=== PATIENT | female | born 1940 | race African-American/Black ===

== ENCOUNTER 2024-01-12 08:59 | Inpatient (IN) | payer BC ==
[~2024-01-12] VITALS: Ht 170.2 cm; Wt 78.6 kg
[2024-01-12] MEDS: ACETAMINOPHEN 500MG TABLET PO ONE (10:36)
[2024-01-12] MEDS ORDERED: ONDANSETRON HCL 4MG/2ML INJ IV PRN (12:45)
[2024-01-12 13:41] LABS: BG CARBOXYHEMOGLOBIN 0.3 % (0.5-1.5); BG DEOXYHEMOGLOBIN 2.3 % (0.0-5.0); BG FRACTION INSPIRED OXYGEN 21; BG HCO3 ACT 22.6 mmol/L (22.0-26.0); BG METHEMOGLOBIN 0.3 % (0.0-1.5); BG OXYGEN SATURATION 97.7 % (92.0-98.5); BG OXYHEMOGLOBIN 97.1 % (94.0-97.0); BG PCO2 34.2 mmHg (35.0-45.0); BG PH 7.437 (7.350-7.450); BG PO2 103.5 mmHg (75.0-100.0); BG SAMPLE SITE RIGHT BRACHIAL; BG TOTAL HEMOGLOBIN 13.5 g/dL (12.0-18.0); BG VENT MODE ROOM AIR
[2024-01-12 14:14] LABS: BASOPHILS % 0.8 % (0.0-2.0); EOSINOPHILS % 1.5 % (0.0-5.0); HEMOGLOBIN. 12.4 g/dL (12.0-16.0); LYMPHOCYTES % 29.1 % (20.0-50.0); MEAN CORPUSCULAR HEMOGLOBIN 27.2 pg (28.0-32.0); MEAN CORPUSCULAR HGB CONC 32.8 g/dL (31.0-37.0); MEAN PLATELET VOLUME 9.7 fl (7.4-10.4); NEUTROPHILS % 62.6 % (40.0-76.0); PLATELET 156 x1000/uL (130-400); RED BLOOD CELL COUNT 4.57 mill/uL (4.2-5.4); RED CELL DISTRIBUTION WIDTH 16.7 % (11.6-14.6)
[2024-01-12 14:28] LABS: CREATINE KINASE MB FRACTION 1.7 ng/mL (0.5-3.6)
[2024-01-12 14:29] LABS: TROPONIN I HIGH SENSITIVITY 27 ng/L (3.0-34)
[2024-01-12 14:30] LABS: CREATINE KINASE 198 IU/L (34-145)
[2024-01-12 16:00] VITALS: BP 135/56; PULSE 57; RESP 18; TEMP 96.9
[2024-01-12 18:12] LABS: CHLORIDE 112 mEq/L (98-107); POTASSIUM 3.9 mEq/L (3.5-5.1); SODIUM 142 mEq/L (136-145)
[2024-01-12 18:13] LABS: CARBON DIOXIDE 24 mEq/L (21-32)
[2024-01-12 18:14] LABS: CALCIUM 9.9 mg/dL (8.7-10.4)
[2024-01-12 18:19] LABS: CREATININE 0.9 mg/dL (0.6-1.0); GLUCOSE 75 mg/dL (70-105); UREA NITROGEN BLOOD 9 mg/dL (9-23)
[2024-01-12] MEDS ORDERED: ANAS1TAB49 PO ×2 (18:39→18:58)
[2024-01-12] MEDS ORDERED: HYDR12.54 PO (18:39)
[2024-01-12] MEDS ORDERED: AMLO5TAB4 PO (18:39)
[2024-01-12] MEDS ORDERED: METO-539 PO (18:58)
[2024-01-12] MEDS ORDERED: CRES10 PO (18:58)
[2024-01-12] MEDS ORDERED: HYDR25TA PO (18:58)
[2024-01-12] MEDS ORDERED: AMLO5TAB88 PO (18:58)
[2024-01-12 20:00] VITALS: BP 102/63; PULSE 56; RESP 18; TEMP 98.1
[2024-01-12] MEDS ORDERED: ENOXAPARIN 40MG/0.4ML SYR SUBCUT SCH (20:00)
[2024-01-12] MEDS: ENOXAPARIN 40MG/0.4ML SYR SUBCUT SCH (21:16)
[2024-01-12] MEDS: ACETAMINOPHEN 325MG TABLET PO PRN (21:27)
[2024-01-13] VITALS (7 sets, daily range): BP systolic 109–137; BP diastolic 45–87; PULSE 60–75; RESP 18–20; TEMP 97.5–99.3
[2024-01-13 00:19] LABS: CREATINE KINASE 180 IU/L (34-145)
[2024-01-13 00:23] LABS: CREATINE KINASE MB FRACTION 0.9 ng/mL (0.5-3.6); TROPONIN I HIGH SENSITIVITY 25 ng/L (3.0-34)
[2024-01-13 08:45] LABS: CALCIUM 9.7 mg/dL (8.7-10.4); CARBON DIOXIDE 25 mEq/L (21-32); CHLORIDE 110 mEq/L (98-107); POTASSIUM 3.7 mEq/L (3.5-5.1); SODIUM 141 mEq/L (136-145)
[2024-01-13 08:51] LABS: CREATININE 0.8 mg/dL (0.6-1.0); GLUCOSE 81 mg/dL (70-105); UREA NITROGEN BLOOD 7 mg/dL (9-23)
[2024-01-13] MEDS ORDERED: NALOXONE HCL 0.4MG/ML VIAL IV PRN (11:30)
[2024-01-13] MEDS: HYDROCODONE/ACETAMINOPHEN 5/325MG TABLET PO PRN (11:42)
[2024-01-13] MEDS: ANASTROZOLE 1 MG TABLET PO SCH (20:16)
[2024-01-14] VITALS (7 sets, daily range): BP systolic 110–154; BP diastolic 54–75; PULSE 66–71; RESP 18–20; TEMP 97.7–99.2; O2SAT 98
[2024-01-14] MEDS: HYDROCHLOROTHIAZIDE 25MG TABLET PO SCH (09:12)
[2024-01-14] MEDS: AMLODIPINE 5MG TABLET PO SCH (09:12)
== END 2024-01-14 18:51 | disposition home or self-care (01) | DRG 310 ==
LOC: ER 10:02 → 5WST 12:23 → EDBEDREQ 12:25 → EDBEDREQTM 12:25 → 7WST 17:38
PROVIDERS: ADMIT Internal Medicine; ATTEND Internal Medicine
DX: R00.1 Bradycardia, unspecified (principal); I10 Essential (primary) hypertension; E78.00 Pure hypercholesterolemia, unspecified; R41.3 Other amnesia; Z15.01 Genetic susceptibility to malignant neoplasm of breast; Z85.3 Personal history of malignant neoplasm of breast; Z92.3 Personal history of irradiation; T44.7X5A Adverse effect of beta-adrenoreceptor antagonists, initial encounter
CPT/HCPCS: 36415; 36600; 70486; 70544; 70547; 70553; 71045; 72170; 73130; 73620; 73630; 80048; 80061; 82375; 82550; 82553; 82805; 84484; 85025; 93306; 93880; 93970; 99285; J1650